=== PATIENT | male | born 1980 | race Hispanic/Latino ===

== ENCOUNTER 2020-09-01 16:02 | Emergency (ER) | payer SELFPAY ==
[2020-09-01] MEDS ORDERED: Bacitracin 1 PK ONE (18:01)
[2020-09-01] MEDS ORDERED: Boostrix 0.5 ML (Tdap) VIAL ONE (18:01)
== END 2020-09-01 18:15 | disposition home or self-care (01) ==
LOC: ERS 16:02
DX: S61.316A Laceration without foreign body of right little finger with damage to nail, initial encounter (principal); W22.8XXA Striking against or struck by other objects, initial encounter
CPT/HCPCS: 90471; 90715; 99283